=== PATIENT | female | born 1990 ===

== ENCOUNTER 2016-07-29 11:13 | Inpatient (IN) | payer MEDICAID ==
[2016-07-29 12:08] VITALS: BMI 39.6
[2016-07-29] MEDS ORDERED: Penicillin G 5 Million Unit Vial IVPB ONE ×2 (13:10→15:50)
[2016-07-29] MEDS ORDERED: Lactated Ringer's 1,000 ML IV SCH (13:15)
[2016-07-29 13:27] LABS: BASO % 0.2 % (0.0-2.0); EOS % 0.5 % (0.0-4.0); LYMPH # 1.2 K/uL (1.0-4.3); LYMPH % 17.7 % (20.0-40.0); MEAN CELL VOLUME 88.7 fL (81.0-99.0); MEAN CORPUSCULAR HGB CONC 33.8 g/dL (33.0-37.0); MEAN PLATELET VOLUME 12.3 fL (7.2-11.7); MONO # 0.5 K/uL (0.0-0.8); MONO % 8.4 % (0.0-10.0); NRBC % 0.5 % (0.0-2.0); RED CELL DISTRIBUTION WIDTH 13.7 % (11.5-14.5); WHITE BLOOD COUNT 6.5 K/uL (4.8-10.8)
[2016-07-29 13:33] LABS: RBC URINE 4 /hpf (0-3); URINE BILIRUBIN NEGATIVE (NEGATIVE); URINE BLOOD 2+ (NEGATIVE); URINE COLOR Amber (YELLOW); URINE GLUCOSE (UA) NORMAL (Normal); URINE KETONE TRACE mg/dL (NEGATIVE); URINE LEUKOCYTE ESTERASE NEG Leu/uL (Negative); URINE PROTEIN 2+ mg/dL (NEGATIVE); WBC URINE 8 /hpf (0-5)
[2016-07-29 13:40] LABS: CHLORIDE 102 mmol/L (98-107); INR 0.9; POTASSIUM 3.4 mmol/L (3.6-5.2); SODIUM 133 mmol/L (132-148)
[2016-07-29 13:42] LABS: ALB/GLOB RATIO 0.9 (1.0-2.1); AST/SGOT 30 U/L (14-36); BILIRUBIN,TOTAL 0.2 mg/dL (0.2-1.3); CARBON DIOXIDE 22 mmol/L (22-30); GFR AFRICAN-AMERICAN > 60
[2016-07-29 13:43] LABS: ALKALINE PHOSPHATASE 145 U/L (38-126); ALT/SGPT 34 U/L (9-52); BLOOD UREA NITROGEN 5 mg/dL (7-17); GLUCOSE,RANDOM 112 mg/dL (65-105); URIC ACID 4.3 mg/dL (2.2-7.5)
[2016-07-29] MEDS ORDERED: Magnesium Sulfate 20 gm 500 ML IV ONE (15:59)
[2016-07-29] MEDS ORDERED: Magnesium Sulfate 4 gm/100 ml 4 GM/100 ML BAG IVPB ONE ×2 (15:59→16:00)
[2016-07-29] MEDS ORDERED: Magnesium Sulfate 20 gm 500 ML IV SCH (16:30)
[2016-07-29] MEDS ORDERED: Bupivacaine 0.125%/FentaNYL 200 ML EPI ONE (18:03)
[2016-07-29] MEDS ORDERED: Bupivacaine HCl 0.25% PF (10 ml) Inj ONE (18:03)
[2016-07-29] MEDS ORDERED: Metoprolol 1 mg/ml Inj IVP ONE (19:38)
--- NOTE | 2016-07-29 20:26 | OBHP ---
Datetime: 07/29/2016 13:10 IP Adm Impression: Term, intrauterine ; No Active Labor; Intact Membranes IP Admit Plan: Admit to unit IP Admit Plan Other: Cervical ripening Admit Comment, IP Provider: 26 yo , LMP 10/30/15, [place] 08/05/16 EGA 39 weeks [address] [facility] for evaluation fo pre-eclampsia: BP 150/100 and urine 1+ protein. In Ob-ED, BP range 143-157/75-85; at time of encounter, 138/74. Patient reports no headache currently, but has had headaches on and off x 3 weeks and earlier this morning. Denies spots, blurred vision, epigastric or RUQ pain. (+) AFM; d enies LOF, VB, Ctx. Had sexual intercourse 3 days ago. P Ob: x 2: 2006, female, 7lb 14 oz, [place], male, 9lb, [place], no GDM. 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 PMH: GDM PSH: D_C MKDA Meds: PNV Soc Hx: denies tobacco, illicit drug or EtOH use. Lives with and children Fam Hx: Mother alive 64 - HTN. Father alive 63 - colon CA - 4 yrs ago, in remission; DM, HTN, ast hma. P.E.: as above. WD in NAD. Awake, alert, oriented to time, person and place. Pleasant and cooperat leticia. Assessment: 26 y.o. P2012, 39 weeks, elevated BP with proteinuria - mild pre-eclampsia. GBS (+). D/W patient, cervical ripening; possible pitocin; penicillin; pain medication. Also, possible, magn esium for seizure prophylaxis. Category 1 tracing. Clinically stable. Plan: 1) Admit 2) NPO 3) IVFs 4) Admission, and pre-eclamptic labs 5) cervidil 6) epidural, upon request 7) anticipate vaginal delivery Pelvic Type - PN: Adequate Extremities - PN: Normal Abdomen - PN: Normal Back - PN: Normal Breast - PN: Not Done Lungs - PN: Normal Heart - PN: Normal Thyroid - PN: Not Done Neurologic - PN: Normal General - PN: Normal Presentation-Admit: Vertex FHR - Baseline A Provider: 160 Membranes, Provider: Intact Contraction Comments Provider: 8-10 Comments, ACOG Physical Exam: Skin: warm, dry, intact Abdomen: Soft, gravid. No epigastric or RUQ pain. Fundal height 39 cm Extremities: no calf tenderness, cyanosis or edema All other systems reviewed and are negative. Gestation - Est Wks by US: 39.0 IP Hx Assessment: The History has been Reviewed and is Current IP Indication for Induction: Not Applicable IP Chief Complaint: Signs/Symptoms Gestational HTN NICHD Variability Prov Fetus A: Moderate 6-25bpm NICHD Accel Fetus A IP Provider: 15X15 FHR Category Provider Fetus A: Category I NICHD Decel Fetus A IP Provider: None Dilatation, Provider: 3 Effacement, Provider: 40 Station, Provider: -3 Genitourinary Exam: Normal DTRs - PN: Normal
--- NOTE | 2016-07-29 20:33 | OBPN ---
Datetime: 07/29/2016 15:34 Contraction Comments Provider: irregular FHR - Baseline A Provider: 150 Gestation - Est Wks by US: 39.0 IP Progress Note Comment: Patient denies HAs, BV, spots, epigastric pain. Cervidil placed in posterior vaginal vault Assessment: 26 yo P2012, 39 weeks, mild pre-eclampsia; BPs noted. Category 1 tracing. U/A 2+ prot ein; also 2+ blood., GBS (+) on penicillin. Clinically stable. Plan: 1) Start magnesium sulphate 2) Epidural, upon request 3) Continue penicillin 4) Anticipate vaginal delivery Vital Signs Provider: Reviewed Vital Signs Provider Details: mid-hi 130s-150/80-90s NICHD Accel Fetus A IP Provider: 15X15 FHR Category Provider Fetus A: Category I NICHD Variability Prov Fetus A: Moderate 6-25bpm Dilatation, Provider: 3 Effacement, Provider: 40 Station, Provider: -3 NICHD Decel Fetus A IP Provider: None Datetime: 07/29/2016 13:10 Membranes, Provider: Intact Presentation-Admit: Vertex
[2016-07-30] MEDS ORDERED: Bupivacaine HCl 0.25% PF (10 ml) Inj ONE (03:16)
[2016-07-30] MEDS ORDERED: Magnesium Sulfate 20 gm 500 ML IV ONE ×2 (03:18→14:13)
[2016-07-30] MEDS ORDERED: Oxytocin 30 UNIT 30 UNITS/500 ML BAG IV PRN (05:00)
[2016-07-30] MEDS ORDERED: Lidocaine 2% Inj (20ml) ONE (05:52)
[2016-07-30] MEDS ORDERED: Oxycodone/Acetaminophen 5/325 mg Tab PO PRN ×2 (06:22)
[2016-07-30] MEDS ORDERED: Magnesium Sulfate 20 gm 500 ML IV SCH ×2 (06:26→07:45)
--- NOTE | 2016-07-30 06:59 | OBDS ---
DELIVERY PERSONNEL Delivery Doctor: Josefina Steele MD Scrub Nurse: Danya Miller Animated Cartoons Painter: Janet Gallegos RN Anesthesiologist: MATERNAL INFORMATION Delivery Anesthesia: Epidural Medications in Delivery: PITOCIN _ CYTOTEC Estimated Blood Loss (ml): 500 Placenta Cultured: No Maternal Complications: None RN Comments: LIVE BABY GIRL 9/9 SKIN TO SKIN DONE Provider Comments: Uncomplicated vaginal delivery, live female , over intact perineum, Apgars 9/9; weight 8lb 2oz; loose nuchal cord x 1 easily reduced over infant's head. Magnesium held for deli very Spontaneous delivery of placenta - grossly intact; 3 vessels. Cervix, vagina, perineum inspected; laceratin noted and repaired as above. Moderate amount of bleeding; uterus alternating mildly boggy and firm - cytotec 1,000 mg administe red per rectum. Uterus more firm. Magnesium sulphate restarted. and mother bonding; both in stable condition LABOR SUMMARY EDC: 08/07/2016 00:00 No. Babies in Womb: 1 Attempted: No Labor Anesthesia: Epidural LABOR INFORMATION Onset of Labor: 07/29/2016 18:00 Complete Dilatation: 07/30/2016 05:28 Cervical Ripening Agents: Cervidil (Annotations: REMOVED @ THIS TIME ) Oxytocin: N/A Group B Beta Strep: Positive Antibiotics # of Doses: 4 Antibiotics Time of Last Dose: 0400 Steroids Given: None Reason Steroids Not Administered: Not Applicable MEMBRANES Membranes Rupture Method: Spontaneous Rupture of Membranes: 07/30/2016 05:28 Length of Rupture (hrs): 0.13 Amniotic Fluid Color: Clear Amniotic Fluid Amount: Moderate Amniotic Fluid Odor: Normal STAGES OF LABOR Stage 1 hrs: 11 Stage 1 min: 28 Stage 2 hrs: 0 Stage 2 min: 8 Stage 3 hrs: 0 Stage 3 min: 9 Total Time in Labor hrs: 11 Total Time in Labor min: 45 VAGINAL DELIVERY Episiotomy: None Laceration Extension: First Degree Laceration Type: Perineal Other Laceration: 3.0CHROMIC Laceration Repair: Yes Laceration Repair Note: 3-0 chromic, interupted, routine fashion Hemostasis assured. Patient tolerted procedure well Initial Vag Sponge Count: 10 Final Vag Sponge Count: 10 Initial Vag Sharps Count: 0 Final Vag Sharps Count: 1 Sponge Count Correct: Yes; Vaginal Sweep Performed Sharps Count Correct: Yes Count Comment: Correct BABY A INFORMATION Delivery Date/Time: 07/30/2016 05:36 Method of Delivery: Vaginal Born in Route : No : N/A Forceps: N/A Vacuum Extraction: N/A Shoulder Dystocia : No SHOULDER DYSTOCIA BABY A Infant Delivery Date/Time: 07/30/2016 05:36 PRESENTATION/POSITION BABY A Presentation: Cephalic Cephalic Presentation: Vertex Vertex Position: Left Occipital Anterior Breech Presentation: N/A PLACENTA INFORMATION BABY A Placenta Delivery Time : 07/30/2016 05:45 Placenta Method of Delivery: Spontaneous Placenta Status: Delivered SCORES BABY A Heart Rate 1 min: >100 bpm Resp Effort 1 min: Good Cry Reflex Irritability 1 min: Cough or Sneeze or Pulls Away Muscle Tone 1 min: Active Motion Color 1 min: Body Bucks, Extremities Blue Resuscitation Effort 1 min: Tactile Stimulation SCORE 1 MIN: 9 Heart Rate 5 min: >100 bpm Resp Effort 5 min: Good Cry Reflex Irritability 5 min: Cough or Sneeze or Pulls Away Muscle Tone 5 min: Active Motion Color 5 min: Body Bucks, Extremities Blue Resuscitation Effort 5 min: Tactile Stimulation SCORE 5 MIN: 9 INFORMATION BABY A Gestational Age at Delivery: 38.6 Gestational Status: Term Infant Outcome : Liveborn Infant Condition : Stable Sex: Female IDENTIFICATION/MEDS BABY A ID Band Number: [id number] ID Band Location: Left Leg; Left Arm Sensor Applied: Yes Sensor Number: [id number] Sensor Location : Cord Clamp Vitamin K Given : Not Given Erythromycin Given: Not Given WEIGHT/LENGTH BABY A Infant Birthweight (gms): 3690 Weight (lb): 8 Weight (oz): 2 Length Inches: 19.50 Length cms: 49.5 CORD INFORMATION BABY A No. Cord Vessels: 3 Nuchal Cord : Around Neck x1, Loose Cord Blood Taken: Yes Suction: Mouth; Nose ASSESSMENT BABY A Complications: None Physical Findings at Delivery: Within Normal Limits Respirations: Appears Normal Air Brush Artist/ALS Called : No Care By: JAMILA KURTZ
[2016-07-30] MEDS ORDERED: Oxytocin 10 Units/ml Inj ONE (08:28)
[2016-07-30 09:02] LABS: HEMATOCRIT 35.4 % (34.0-47.0); LYMPH # 0.6 K/uL (1.0-4.3); LYMPH % 3.6 % (20.0-40.0); MEAN CELL VOLUME 89.3 fL (81.0-99.0); MEAN CORPUSCULAR HEMOGLOBIN 29.7 pg (27.0-31.0); MEAN CORPUSCULAR HGB CONC 33.3 g/dL (33.0-37.0); MEAN PLATELET VOLUME 12.1 fL (7.2-11.7); MONO # 0.9 K/uL (0.0-0.8); MONO % 5.3 % (0.0-10.0); PLATELET COUNT 196 K/uL (130-400)
[2016-07-30 09:03] LABS: INR 0.9
[2016-07-30 09:07] LABS: WHITE BLOOD COUNT 17.9 K/uL (4.8-10.8)
[2016-07-30 09:10] LABS: CHLORIDE 102 mmol/L (98-107); SODIUM 130 mmol/L (132-148)
[2016-07-30 09:11] LABS: POTASSIUM 4.2 mmol/L (3.6-5.2)
[2016-07-30 09:13] LABS: ALKALINE PHOSPHATASE 152 U/L (38-126); AST/SGOT 35 U/L (14-36); BILIRUBIN,DIRECT 0.5 mg/dL (0.0-0.4); BILIRUBIN,TOTAL 0.8 mg/dL (0.2-1.3); BLOOD UREA NITROGEN 6 mg/dL (7-17); CARBON DIOXIDE 18 mmol/L (22-30); GFR AFRICAN-AMERICAN > 60; GLUCOSE,RANDOM 127 mg/dL (65-105)
[2016-07-30 09:14] LABS: ALT/SGPT 33 U/L (9-52); CALCIUM 8.1 mg/dl (8.6-10.4)
[2016-07-30 09:57] LABS: NEUTROPHIL 91 % (50-75); TOTAL CELLS COUNTED 100
[2016-07-30 09:58] LABS: GIANT PLATELETS PRESENT; LARGE PLATELETS PRESENT
[2016-07-31] MEDS ORDERED: Magnesium Sulfate 20 gm 500 ML IV ONE (00:55)
[2016-07-31 06:49] LABS: HEMATOCRIT 30.4 % (34.0-47.0); MEAN CELL VOLUME 89.2 fL (81.0-99.0); MEAN CORPUSCULAR HEMOGLOBIN 30.7 pg (27.0-31.0); MEAN CORPUSCULAR HGB CONC 34.5 g/dL (33.0-37.0); MEAN PLATELET VOLUME 11.6 fL (7.2-11.7); RED CELL DISTRIBUTION WIDTH 13.8 % (11.5-14.5); WHITE BLOOD COUNT 9.4 K/uL (4.8-10.8)
[2016-07-31 06:55] LABS: RBC URINE 32 /hpf (0-3); URINE BACTERIA RARE (<OCC); URINE BILIRUBIN NEGATIVE (NEGATIVE); URINE BLOOD 3+ (NEGATIVE); URINE COLOR Colorless (YELLOW); URINE GLUCOSE (UA) NORMAL (Normal); URINE KETONE NEGATIVE (NEGATIVE); URINE LEUKOCYTE ESTERASE TRACE Leu/uL (Negative); URINE PROTEIN NEGATIVE (NEGATIVE); URINE UROBILINOGEN NORMAL mg/dL (0.2-1.0); WBC URINE 5 /hpf (0-5)
--- NOTE | 2016-07-31 09:22 | OBPPN ---
Datetime: 07/31/2016 09:14 PP Pain Prov: Within normal limits PP Nausea Prov: Denies PP Flatus Prov: Yes PP Breasts Prov: Normal PP Heart Prov: Normal PP Lungs Prov: Normal PP Abdomen/Uterus Prov: Normal PP Lochia Prov: Normal PP Vulva/Perineum Prov: Normal PP CVA Tenderness Prov: Normal PP Extremities Prov: Normal PP Comments Phys Exam Prov: Denies headache,dizziness or blurry vision. Denies epigastric pain. Abd: Soft, NT, BS- present UT- Firm,NT Reflexes: WNL PP Impression Prov: Normal progression PP Progress Note Prov: S/P ,PPD #1 Elevated BPS , trending down S/P Magnesium Sulfate. Plan: Continue care. Vital Signs Provider Details PP: Pt is S/p magnesium sulfate for 24hrs after delivery due to preecla mpsia. The blood pressures are trending down. Pt to be transfered to the floor.
--- NOTE | 2016-08-01 07:46 | OBPPN ---
Datetime: 08/01/2016 07:44 PP Pain Prov: Within normal limits PP Nausea Prov: Denies PP Flatus Prov: Yes PP Heart Prov: Normal PP Lungs Prov: Normal PP Abdomen/Uterus Prov: Normal PP Lochia Prov: Normal PP Extremities Prov: Normal PP Comments Phys Exam Prov: fudus below umblicus ext no edema,NO CALF TEN PP Impression Prov: Normal progression; Induced Hypertension PP Plan Prov: Discharge PP Progress Note Prov: pt was seen at bed side, pain under control,no n/v, tolerating deit,voiding,m in lochia, flatus + ppf#2s/p dc home no sex LABETIOL 100 MG BID motrin prn f/u in 1weeks Vital Signs Provider PP: Reviewed; Within Normal Limits
--- NOTE | 2016-08-01 07:48 | OBDCSUM ---
Datetime: 08/01/2016 07:45 Discharged to, Provider: Home Follow up at, Provider: [facility] Disch Instr Activity: Normal activity Disch Instr Diet: Regular Discharge Diagnosis, Provider: Term Delivered Follow up in weeks, Provider: clinic Disch Activity Restrictions: No exercising; No lifting; No driving; Minimize walking; Minimize stair -climbing; No sexual activity; Nothing in vagina - [place], tampons, douche Discharge Comment, Provider: no sex motrin prn labetol 100 mg bid f/u in 1week Discharge Diagnosis Prov Other: preclampsia
[2016-08-01 08:40] VITALS: BP 134/84; PULSE 89; RESP 18; TEMP 97.7; O2SAT 100
== END 2016-08-01 12:50 | disposition home or self-care (01) | DRG 372 ==
LOC: C.EROB 11:13 → C.4D 13:11 → C.4M 07-31 09:26
PROVIDERS: ADMIT Obstetrics & Gynecology; ATTEND Obstetrics & Gynecology
PROC: 3E0P7GC Introduction of Other Therapeutic Substance into Female Reproductive, Via Natural or Artificial Opening (ICD-10-PCS; 2016-07-29)
PROC: 10E0XZZ Delivery of Products of Conception, External Approach (ICD-10-PCS; principal; 2016-07-30)
PROC: 0HQ9XZZ Repair Perineum Skin, External Approach (ICD-10-PCS; 2016-07-30)
DX: O14.04 Mild to moderate pre-eclampsia, complicating childbirth (principal); O99.824 Streptococcus B carrier state complicating childbirth; O70.0 First degree perineal laceration during delivery; O69.81X0 Labor and delivery complicated by cord around neck, without compression, not applicable or unspecified; Z3A.39 39 weeks gestation of pregnancy; Z37.0 Single live birth